=== PATIENT | female | born 1990 ===

== ENCOUNTER 2017-03-05 13:13 | Emergency (ER) | payer BC, MEDICAID, OTHER ==
[2017-03-05 13:13] VITALS: BMI 34.9
[2017-03-05 13:29] VITALS: BP 120/64; PULSE 78; RESP 18; TEMP 98.6; O2SAT 100
[2017-03-05] MEDS ORDERED: Fluorescein 1 mg Ophthalmic Strip OS STA (14:26)
--- NOTE | 2017-03-05 14:47 | ED PDOC ---
HPI: Eye Injury/Pain Time Seen by Provider: 03/05/17 13:49 Chief Complaint (Nursing): Eye Problem Chief Complaint (Provider): Foreign body in right eye History Per: Patient History/Exam Limitations: no limitations Onset/Duration Of Symptoms: Days (x 2) Current Symptoms Are (Timing): Still Present Additional Complaint(s): Valeria is a 27 y/o female who presents to the ED complaining of foreign body sensation in the right eye since yesterday. Patient states symptoms began after a glass bowl broke. Denies pain. No redness or changes in vision. PMD: Unknown Past Medical History Reviewed: Historical Data, Nursing Documentation, Vital Signs Vital Signs: Last Vital Signs Temp 98.6 F 03/05/17 13:27 Pulse 78 03/05/17 13:27 Resp 18 03/05/17 13:27 BP 120/64 03/05/17 13:27 Pulse Ox 100 03/05/17 13:27 - Medical History PMH: No Chronic Diseases - Surgical History Other surgeries: Dilation and curettage - Family History Family History: States: Unknown Family Hx, Diabetes, Hypertension - Social History Current smoker - smoking cessation education provided: No Alcohol: None Drugs: Denies - Home Medications Home Medications: Ambulatory Orders Medication Instructions Recorded Nitrofurantoin Macrocrystals 100 mg PO BID #6 cap 07/26/15 [Macrobid] Nitrofurantoin Macrocrystals 100 mg PO BID #14 cap 02/12/16 [Macrobid] Polymyxin/Trimethoprim Sulfate 1 drop XX Q6H 10 Days 03/05/17 [Polytrim Ophth Soln] - Allergies Allergies/Adverse Reactions: Allergies Allergy/AdvReac Type Severity Reaction Status Date / Time No Known Allergies Allergy Verified 03/09/16 14:37 Review of Systems ROS Statement: Except As Marked, All Systems Reviewed And Found Negative Eyes: Positive for: Other (Foreign body sensation to right eye). Negative for: Pain, Vision Change, Redness Physical Exam - Reviewed Nursing Documentation Reviewed: Yes Vital Signs Reviewed: Yes - Physical Exam Appears: Positive for: Well, Non-toxic, No Acute Distress Skin: Positive for: Normal Color, Warm, Dry Eye Exam: Positive for: EOMI, PERRL, Conjunctival injection (and injection of sclerae) Neurologic/Psych: Positive for: Alert, Oriented - ECG O2 Sat by Pulse Oximetry: 100 (RA) Pulse Ox Interpretation: Normal Medical Decision Making Medical Decision Making: Time: 14:26 Initial Plan: --Fluorescein 1 mg OS --No foreign body visualized Time: 14:59 Upon provider evaluation patient is medically stable, and requires no further treatment in the ED at this time. Patient will be discharged home with Rx for eye drops. Counseling was provided and all questions were answered regarding diagnosis and need for follow up with PMD. There is agreement to discharge plan. Return if symptoms persist or worsen. Scribe Attestation: Documented by Arleth Parnell, acting as a scribe for Darcy Nielson PA-C Provider Scribe Attestation: All medical record entries made by the Scribe were at my direction and personally dictated by me. I have reviewed the chart and agree that the record accurately reflects my personal performance of the history, physical exam, medical decision making, and the department course for this patient. I have also personally directed, reviewed, and agree with the discharge instructions and disposition. Disposition - Clinical Impression Clinical Impression: Pain, eye, right - Patient ED Disposition Is Patient to be Admitted: No - Disposition Referrals: Leonardo Li MD [Staff Provider] - Disposition: Routine/Home Disposition Time: 15:00 Condition: GOOD Prescriptions: Polymyxin/Trimethoprim Sulfate [Polytrim Ophth Soln] 1 drop XX Q6H 10 Days Instructions: Eye Pain (ED)
[2017-03-05] MEDS ORDERED: Fluorescein 1 mg Ophthalmic Strip ONE (15:12)
== END 2017-03-05 15:34 | disposition home or self-care (01) ==
LOC: H.ER 13:13
DX: H57.11 Ocular pain, right eye (principal)